=== PATIENT | female | born 1960 | race Caucasian/White ===

== ENCOUNTER 2023-07-12 17:20 | Outpatient (RCR) | payer BC, SELFPAY | END 2023-07-12 23:59 | disposition home or self-care (01) | LOC: ROT 17:20 | PROVIDERS: ATTENDING PHYSICIAN Orthopaedic Surgery Hand Surgery; FAMILY PHYSICIAN Family Medicine | DX: Z47.89 Encounter for other orthopedic aftercare (principal); G56.01 Carpal tunnel syndrome, right upper limb | CPT/HCPCS: 97010; 97014; 97035; 97110; 97140 ==

== ENCOUNTER 2023-07-20 10:59 | Outpatient (RCR) | payer BC, SELFPAY | END 2023-07-20 23:59 | disposition home or self-care (01) | LOC: RPT 10:59 | PROVIDERS: ATTENDING PHYSICIAN Orthopaedic Surgery Hand Surgery; FAMILY PHYSICIAN Family Medicine | DX: M25.511 Pain in right shoulder (principal) | CPT/HCPCS: 97010; 97110; 97112; 97140; 97162 ==

== ENCOUNTER 2023-08-02 18:57 | Outpatient (RCR) | payer BC, SELFPAY | END 2023-08-02 23:59 | disposition home or self-care (01) | LOC: RPT 18:57 | PROVIDERS: ATTENDING PHYSICIAN Orthopaedic Surgery Hand Surgery; FAMILY PHYSICIAN Family Medicine | DX: M25.511 Pain in right shoulder (principal); Z73.6 Limitation of activities due to disability; M62.81 Muscle weakness (generalized) | CPT/HCPCS: 97010; 97110; 97112; 97140 ==

== ENCOUNTER 2023-08-30 16:55 | Outpatient (RCR) | payer BC, SELFPAY | END 2023-09-09 08:34 | disposition home or self-care (01) | LOC: RPT 16:55 | PROVIDERS: ATTENDING PHYSICIAN Orthopaedic Surgery Hand Surgery; FAMILY PHYSICIAN Family Medicine | DX: M25.511 Pain in right shoulder (principal); Z73.6 Limitation of activities due to disability | CPT/HCPCS: 97010; 97110; 97112 ==

== ENCOUNTER → 2023-09-12 09:30 | Outpatient (REF) | payer BC, SELFPAY | LOC: HWRAD 09:30 | PROVIDERS: ATTENDING PHYSICIAN Obstetrics & Gynecology; FAMILY PHYSICIAN Family Medicine | DX: Z78.0 Asymptomatic menopausal state (principal) | CPT/HCPCS: 77080 ==

== ENCOUNTER → 2023-09-26 07:48 | Outpatient (REF) | payer BC, SELFPAY | LOC: EMG 07:48 | PROVIDERS: ATTENDING PHYSICIAN Orthopaedic Surgery Hand Surgery; FAMILY PHYSICIAN Family Medicine | DX: R20.0 Anesthesia of skin (principal) | CPT/HCPCS: 95886; 95909 ==

== ENCOUNTER → 2024-07-30 12:43 | Outpatient (REF) | payer BC, SELFPAY | LOC: HWWDC 12:43 | PROVIDERS: ATTENDING PHYSICIAN Obstetrics & Gynecology; FAMILY PHYSICIAN Family Medicine | DX: Z12.31 Encounter for screening mammogram for malignant neoplasm of breast (principal) | CPT/HCPCS: 77063; 77067 ==